=== PATIENT | female | born 1970 ===

== ENCOUNTER 2020-06-08 17:17 | Outpatient (CLI) | payer OTHER, SELFPAY | END 2020-06-08 17:18 | disposition home or self-care (01) | LOC: ANHCOVIDVC 17:17 | PROVIDERS: PCP Family Medicine | DX: Z23 Encounter for immunization (principal) | CPT/HCPCS: 0001A; 91300 ==

== ENCOUNTER 2020-06-29 17:22 | Outpatient (CLI) | payer OTHER, SELFPAY | END 2020-06-29 17:23 | disposition home or self-care (01) | LOC: ANHCOVIDVC 17:22 | PROVIDERS: PCP Family Medicine | DX: Z23 Encounter for immunization (principal) | CPT/HCPCS: 0002A; 91300 ==

== ENCOUNTER 2024-08-21 09:53 | Outpatient (CLI) | payer OTHER, SELFPAY ==
--- OUTSIDE RECORDS SUMMARY | 2024-08-21 10:06 | XMS_ITS | Encounter Summary ---
Author Organization [facility] Address [address] [place] [address] Care Team Providers Care Patents Examiner Name Role Phone Alexandra Mejia MD Primary Care Provider Aurora quinones Encounter Details Date Type Department Care Team (Latest Contact Info) Description 09/05/2008 Outpatient Historical [facility] Alexandra Gibbons MD NO ADDRESS ON FILE Abnormal Maternal Glucose Tolerance, Antepartum Social History Tobacco Use Types Packs/Day Years Used Date Smoking Tobacco: Former Cigarettes Q uit: 04/30/2008 Alcohol Use Standard Drinks/Week Comments No 0 (1 standard drink = 0.6 oz pur e alcohol) Comments Yes Sex and Gender Information Value Date Recorded Sex Assigned at Not on file Legal Sex Female 5:41 AM COIN DEALER Gender Identity Not on file Sexual Orientation Not on file documented as of this encounter Plan of Treatment Not on file documented as of this encounter Visit Diagnoses Diagnosis Abnormal maternal glucose tolerance, antepartum documented in this encounter Care Teams Patents Examiner Relationship Specialty Start Date End Date Alexandra Mejia MD PCP - General Obstetrics and Gynecology 07/04/17 documented as of this encounter
--- OUTSIDE RECORDS SUMMARY | 2024-08-21 10:06 | XMS_ITS | Encounter Summary ---
Author Organization [employer] Address [address] [place] [address] Care Team Providers Care Parts Runner Name Role Phone Alexandra Mejia MD Primary Care Provider Aurora quinones Encounter Details Date Type Department Care Team (Latest Contact Info) Description 05/07/2008 Outpatient Historical [facility], [address] Alexandra Mejia MD [address] [facility] [address] [address] Supervision of Other Normal Social History Tobacco Use Types Packs/Day Years Used Date Smoking Tobacco: Never Assessed Comments No Sex and Gender Information Value Date Recorded Sex Assigned at Not on file Legal Sex Female 5:41 AM SMALL ENGINE SPECIALIST Gender Identity Not on file Sexual Orientation Not on file documented as of this encounter Plan of Treatment Not on file documented as of this encounter Procedures Procedure Name Priority Date/Time Associated Diagnosis Comments TYPE AND SCREEN, Routine 05/07/2008 9:55 PM SMALL ENGINE SPECIALIST documented in this encounter Results * TYPE AND SCREEN, (05/07/2008 9:55 PM SMALL ENGINE SPECIALIST) HISTORY CHECK No Historical ABO/Rh [facility] ABO/RH TYPE B Negative [facility] ANTIBODY SCREEN Negative [facility] Blood specimen (specimen) 05/07/2008 9:55 PM SMALL ENGINE SPECIALIST us Alexandra Mejia MD BLOOD BANK ORDERABLES Edited INTERFACE SYSTEM Refer to clinic/hospital department [facility] CLIA# [id number] [address] [place] [address] documented in this encounter Visit Diagnoses Diagnosis Supervision of other normal documented in this encounter Care Teams Parts Runner Relationship Specialty Start Date End Date Alexandra Mejia MD PCP - General Obstetrics and Gynecology 07/04/17 documented as of this encounter
--- OUTSIDE RECORDS SUMMARY | 2024-08-21 10:06 | XMS_ITS | Clinical Summary ---
Author Organization [facility] Address [address] [facility] [place] [address] Phone Care Team Providers Care Gaming Dealer Name Role Phone Alexandra Mejia MD Primary Care Provider Unavaila ble Allergies No known active allergies Medications Levonorgestrel (MIRENA) 20 mcg/24 hr (5 years) IUDIndications: Encounter for IUD insertion by Intrauterine route. Active temazepam (RESTORIL) 15 mg capsule TK ONE C PO QHS 0 9 Active multivitamin with minerals (HAIR,SKIN AND NAILS ORAL) Take by mouth. Act deny Active Problems Problem Noted Date Diagnosed Date Tobacco use 02/16/2015 Presence of intrauterine contraceptive device (I UD) 01/21/2014 Overview (01/21/2014): Mirena Previous section 05/16/2008 Resolved Problems Problem Noted Date Diagnosed Date Resolved Date Presence of intrauterine con traceptive device (IUD) 09/01/2013 12/24/2013 Overview (09/01/2013): Mirena C section 12/11/2008 10/09/2011 Supervision of other normal 08/13/2008 10/09/2011 Encounters Date Type Department Care Team Description 08/19/2024 External Device Data [facility] ABSTRACTION Provider, Abstract 08/05/2024 External Device Data [facility] ABSTRACTION Provider, Abstract 06/18/2024 External Device Data [facility] ABSTRACTION Provider, Abstract 06/10/2024 External Device Data [facility] ABSTRACTION Provider, Abstract 06/10/2024 External Device Data [facility] ABSTRACTION Provider, Abstract 06/07/2024 External Device Data [facility] ABSTRACTION Provider, Abstract 06/06/2024 External Device Data [facility] ABSTRACTION Provider, Abstract 06/03/2024 External Device Data [facility] ABSTRACTION Provider, Abstract from Last 3 Months Immunizations Immunization Administration Dates Next Due INFLUENZA VACCINE QUADRIVALENT 6 MOS UP PF IM Rho (D) IMMUNE GLOBULIN 1,500 UNIT(300 MCG) INJE CTION 09/03/2008 Rhogam (Rhig) Human Full Dose IM 12/11/2008 Tdap Vaccine > 7 Yo IM VFC 12/13/2008 Family History Medical History Relation Name Comments No Known Problems Daughter No Known Problems Maternal Grandmother Hypertension Mother No Known Problems Other No Known Problems Sister Breast Cancer Neg Hx Cancer Neg Hx Ovarian Cancer Neg Hx Relation Name Status Comments Daughter Maternal Grandmother Mother Other Sister Social History Tobacco Use Types Packs/Day Years Used Date Smoking Tobacco: Every Day Cigarettes 0 Started: 04/30/2008; Last attempted to quit: 04/30/2008 Smokeless Tobacco: Never Alcohol Use Standard Drinks/Week Comments Yes 2 (1 standard drink = 0.6 oz pur e alcohol) occ weekends Comments No Sex and Gender Information Value Date Recorded Sex Assigned at Not on file Legal Sex Female 5:41 AM NUMERICAL CONTROL DRILL PRESS OPERATOR Gender Identity Not on file Sexual Orientation Not on file Occupation Industry Job Start Date Job End Date Not on file Not on file Not on file Not on file Last Filed Vital Signs Vital Sign Reading Time Taken Comments Blood Pressure 120/82 03/12/2019 11:01 AM NUMERICAL CONTROL DRILL PRESS OPERATOR Pulse 83 04/20/2009 4:20 PM NUMERICAL CONTROL DRILL PRESS OPERATOR Temperature - - Respiratory Rate - - Oxygen Saturation - - Inhaled Oxygen Concentration - - Weight 58.1 kg (128 lb) 03/12/2019 11:01 AM NUMERICAL CONTROL DRILL PRESS OPERATOR Height 170.2 cm (5' 7 ) 03/12/2019 11:01 AM NUMERICAL CONTROL DRILL PRESS OPERATOR Body Mass Index 20.05 03/12/2019 11:01 AM NUMERICAL CONTROL DRILL PRESS OPERATOR Plan of Treatment Health Maintenance Due Date Last Done Comments HEPATITIS B VACCINES (1 of 3 - 19+ 3-dose series) 1990 FIT-DNA Q 3 years 2016 FIT/FOBT Q 1 year 2016 Flex Sig/CT Colonography Q 5 years 2016 DTAP/TDAP/TD VACCINES (2 - T d or Tdap) 12/13/2018 12/13/2008 ZOSTER VACCINE (1 of 2) 2021 PAP SMEAR 09/04/2021 09/04/2018, 08/02, 08/24/2016, Additional history exists CERVICAL CANCER SCREENING 09/05/2023 HPV/Cotest (21-29) 09/05/2023 09/04/2018, 0 08/29/2017, 08/24/2016, Additional history exists HPV/Cotest (30-65) 09/05/2023 09/04/2018, 0 08/29/2017, 08/24/2016, Additional history exists INFLUENZA VACCINE (#1) 2023 02/13/2018 BREAST CANCER SCREENING 03/10/2025 03/10/20, 07/27/2022, 05/18/2021, Additional history exists COLORECTAL SCREENING 08/31/2032 08/31/2022 Colorectal Cancer Screening 08/31/2032 Procedures Procedure Name Priority Date/Time Associated Diagnosis Comments MAMMO 3D ERNIE SCREEN IMPL BILAT W OR WO CAD Routine 03/10/2024 11:43 AM NUMERICAL CONTROL DRILL PRESS OPERATOR Visit for screening mammogram CERV/VAG CYTO AGE BASED SCREEN PAP Routine 09/04/2018 4:03 PM CDT Well woman exam with routine gynecological exam Screening for malignant neoplasm of cervix Special screening examination for human papillomavirus (HPV) from Last 3 Months or Most Recently Relevant to Health Maintenance Results * MAMMO 3D ERNIE SCREEN IMPL BILAT W OR WO CAD (03/10/2024 11:43 AM NUMERICAL CONTROL DRILL PRESS OPERATOR) Anatomical Region Laterality Modality Breast Bilateral Mammography 03/10/2024 11:4 3 AM NUMERICAL CONTROL DRILL PRESS OPERATOR Impressions 03/10/2024 11:58 AM NUMERICAL CONTROL DRILL PRESS OPERATOR IMPRESSION: No mammographic evidence of malignancy. RECOMMENDATIONS: Routine screening mammogram in one year. DICTATION LOCATION: [facility] Narrative 03/10/2024 11:58 AM NUMERICAL CONTROL DRILL PRESS OPERATOR MAMMO 3D ERNIE SCREEN IMPL BILAT W OR WO CAD DATE: 03/10/2024 11:43 AM HISTORY: Routine screening TECHNIQUE: Full field digital craniocaudal and mediolateral oblique projections of both breasts were obtained. Computer aided diagnosis was performed. COMPARISON: Prior mammograms dating back to 07/09/2017 BREAST COMPOSITION: There are scattered areas of fibroglandular density. FINDINGS: No suspicious mass, suspicious microcalcifications, or architectural distortion in either breast is identified. Since the prior study, there has been no significant interval change. The computer aided diagnosis detects no significant abnormality. OVERALL FINAL ASSESSMENT: BI-RADS CATEGORY 1 : Negative Procedure Note Lesly Cam MD - 03/10/2024 MAMMO 3D ERNIE SCREEN IMPL BILAT W OR WO CAD DATE: 03/10/2024 11:43 AM HISTORY: Routine screening TECHNIQUE: Full field digital craniocaudal and mediolateral oblique projections of both breasts were obtained. Computer aided diagnosis was performed. COMPARISON: Prior mammograms dating back to 07/09/2017 BREAST COMPOSITION: There are scattered areas of fibroglandular density. FINDINGS: No suspicious mass, suspicious microcalcifications, or architectural distortion in either breast is identified. Since the prior study, there has been no significant interval change. The computer aided diagnosis detects no significant abnormality. OVERALL FINAL ASSESSMENT: BI-RADS CATEGORY 1 : Negative IMPRESSION: No mammographic evidence of malignancy. RECOMMENDATIONS: Routine screening mammogram in one year. DICTATION LOCATION: [facility] us Chidi De Souza MD MAMMO ORDERABLES Final Result * CERV/VAG CYTO AGE BASED SCREEN PAP (09/04/2018 4:03 PM CDT) COMMENT (PAP): SEE COMMENT 9 3:52 PM CDT [facility] Comment: This order for age-based cervical cancer and STI screening follows ACOG guidelines(PB 168, 140, LFD083). See individual assays for performing site location. CLINICAL INFORMATION Intrauterine contraceptive device HEALTHY 09/09/2018 3:52 PM CDT [facility] LAST MENSTRUAL PERIOD INFORMATION NOT PROVIDED 09/09/2018 3:52 PM CDT [facility] PREV PAP: [id number] NIL/NEG HPV HX 09/09/2018 3:52 PM CDT [facility] PREV BX: INFORMATION NOT PROVIDED 09/09/2018 3:52 PM CDT [facility] SOURCE Endocervix 09/09/2018 3:52 PM CDT [facility] ADEQUACY: SEE COMMENT 09/09/2018 3:52 PM CDT [facility] Comment: Satisfactory for evaluation. Endocervical/transformation zone component present. PAP INTERP Negative for intraepithelial lesion or malignancy. 09/09/2018 3:52 PM CDT [facility] COMMENT This Pap test has been evaluated with computer assisted technology. 09/09/2018 3:52 PM CDT [facility] DAUB COLOR MIXER: SEE COMMENT 2018 3:52 PM CDT [facility] Comment: MDG, CT(ASCP) CT screening location: [place] [address] [address] [place] [place] [id number] EXPLANATORY NOTE SEE COMMENT 019 3:52 PM CDT [facility] Comment: EXPLANATORY NOTE: The Pap is a screening test for cervical cancer. It is not a diagnostic test and is subject to false negative and false positive results. It is most reliable when a satisfactory sample, regularly obtained, is submitted with relevant clinical findings and history, and when the Pap result is evaluated along with historic and current clinical information. HPV E6/E7 Not Detected Not Detected 09/09/2018 3:52 PM CDT [facility] Comment: This test was performed using the APTIMA HPV Assay ([employer] This assay detects E6/E7 viral messenger RNA (mRNA) from 14 high-risk HPV types (16,18,31,33,35,39,45,51,52,56,58,59,66,68). The analytical performance characteristics of this assay have been determined by [employer]. The modifications have not been cleared or approved by the FDA. This assay has been validated pursuant to the CLIA regulations and is used for clinical purposes. Genital SWAB OF ENDOCERVIX / Unknown Collection / Unknown 09/04/2018 4:03 PM CDT 09/05/2018 12:07 PM CDT Narrative [facility] - 09/09/2018 3:52 PM CDT Performing Organization Information: Site ID: [id number] [facility] Address: [address] [address] Director: Shakeel Whitman D.O., MPH Site ID: [id number] [facility]: [facility] Address: [address] [address] [address] Director: Dorys Shankar Alexandra Mejia MD PATHOLOGY/CYTOLOGY ORDERABLES F inal Result [facility] [phone] from Last 3 Months or Most Recently Relevant to Health Maintenance Insurance RX [employer] Commercial RX [employer] RX Member Subscriber Plan / Payer (Ef fective for All Dates) Name:Peyton Hartmann Relation to Subscriber:Self Name:Peyton Hartmann Payer ID:Not on file Group ID:[id number] Type:RX Commercial Address: [address] [facility] [address] Advance Directives For more information, please contact: [phone] * Full Code (Latest Code Status on File) Date Activated Date Inactivated Comments 12/10/2008 6:48 PM 12/14/2008 9:02 PM * Full Code Date Activated Date Inactivated Comments 12/10/2008 3:05 PM 12/10/2008 6:48 PM Care Teams Gaming Dealer Relationship Specialty Start Date End Date Alexandra Mejia MD PCP - General Obstetrics and Gynecology 07/04/17
--- OUTSIDE RECORDS SUMMARY | 2024-08-21 10:06 | XMS_ITS | Encounter Summary ---
Author Organization [employer] [facility] Address [address] [place] [address] Care Team Providers Care Long Term Acute Care Registered Nurse Name Role Phone Alexandra Mejia MD Primary Care Provider Aurora quinones Encounter Details Date Type Department Care Team (Late st Contact Info) Description 09/08/2008 Outpatient Historical [facility] Alexandra Madsen MD NO ADDRESS ON FILE [address] Holzem, Craig S, MD [address] [place] [phone] Abn Glucose in Preg-Unsp; Abnormal Maternal Glucose Tolerance, Antepartum Social History Tobacco Use Types Packs/Day Years Used Date Smoking Tobacco: Former Cigarettes Q uit: 04/30/2008 Alcohol Use Standard Drinks/Week Comments No 0 (1 standard drink = 0.6 oz pur e alcohol) Comments Yes Sex and Gender Information Value Date Recorded Sex Assigned at Not on file Legal Sex Female 5:41 AM BIOCHEMIST Gender Identity Not on file Sexual Orientation Not on file documented as of this encounter Plan of Treatment Not on file documented as of this encounter Visit Diagnoses Diagnosis Abnormal maternal glucose tolerance, complicating , childbirth, or the puerperium, unspecified as to episode of care Abnormal maternal glucose tolerance, antepartum documented in this encounter Care Teams Long Term Acute Care Registered Nurse Relationship Specialty Start Date End Date Alexandra Mejia MD PCP - General Obstetrics and Gynecology 07/04/17 documented as of this encounter
--- OUTSIDE RECORDS SUMMARY | 2024-08-21 10:06 | XMS_ITS | Encounter Summary ---
Author Organization [employer] Address [address] [place] [address] Care Team Providers Care Ceramics Teacher Name Role Phone Alexandra Mejia MD Primary Care Provider Aurora quinones Encounter Details Date Type Department Care Team (Latest Contact Info) Description 11/19/2008 Outpatient Historical [facility], MAIN , Wendy Chapman MD [address] [place] [address] Supervision of Other Normal Social History Tobacco Use Types Packs/Day Years Used Date Smoking Tobacco: Former Cigarettes Q uit: 04/30/2008 Alcohol Use Standard Drinks/Week Comments No 0 (1 standard drink = 0.6 oz pur e alcohol) Comments Yes Sex and Gender Information Value Date Recorded Sex Assigned at Not on file Legal Sex Female 5:41 AM ELECTRIC SCREW DRIVER OPERATOR Gender Identity Not on file Sexual Orientation Not on file documented as of this encounter Plan of Treatment Not on file documented as of this encounter Visit Diagnoses Diagnosis Supervision of other normal documented in this encounter Care Teams Ceramics Teacher Relationship Specialty Start Date End Date Alexandra Mejia MD PCP - General Obstetrics and Gynecology 07/04/17 documented as of this encounter
--- OUTSIDE RECORDS SUMMARY | 2024-08-21 10:06 | XMS_ITS | Encounter Summary ---
Author Organization [employer] [facility] Address [address] [place] [address] Care Team Providers Care Insight Leader Name Role Phone Alexandra Mejia MD Primary Care Provider Aurora quinones Encounter Details Date Type Department Care Team (Latest Contact Info) Description 06/11/2008 Outpatient Historical [facility] Alexandra Mejia MD [address] [facility] [address] [address] Supervision of Other Normal ; Elderly Multigravida with Antepartum Condition or Complication Social History Tobacco Use Types Packs/Day Years Used Date Smoking Tobacco: Former Cigarettes Q uit: 04/30/2008 Alcohol Use Standard Drinks/Week Comments No 0 (1 standard drink = 0.6 oz pur e alcohol) Comments Yes Sex and Gender Information Value Date Recorded Sex Assigned at Not on file Legal Sex Female 5:41 AM DIRECTOR OF CAREER RESOURCES Gender Identity Not on file Sexual Orientation Not on file documented as of this encounter Plan of Treatment Not on file documented as of this encounter Procedures Procedure Name Priority Date/Time Associated Diagnosis Comments US OB LTD 1 OR MORE FETUSES Timed Study 06/11/2008 2:34 PM CDT documented in this encounter Results * US OB LTD 1 OR MORE FETUSES (06/11/2008 2:34 PM CDT) Anatomical Region Laterality Modality Pelvis Other Narrative 06/11/2008 2:34 PM CDT FINAL - Order Information Only Procedure Note Luis Jorge RN - 04/20/2015 FINAL - Order Information Only us Alexandra Mejia MD ORDERABLES Final Result documented in this encounter Visit Diagnoses Diagnosis Supervision of other normal Elderly multigravida with antepartum condition or complication documented in this encounter Care Teams Insight Leader Relationship Specialty Start Date End Date Alexandra Mejia MD PCP - General Obstetrics and Gynecology 07/04/17 documented as of this encounter
--- OUTSIDE RECORDS SUMMARY | 2024-08-21 10:06 | XMS_ITS | Encounter Summary ---
Author Organization [employer] Address [address] [place] [address] Care Team Providers Care Parasitology Teacher Name Role Phone Alexandra Mejia MD Primary Care Provider Aurora quinones Encounter Details Date Type Department Care Team (Latest Contact Info) Description 09/03/2008 Outpatient Historical [facility] Alexandra Mejia MD NO ADDRESS ON FILE Supervision of Other Normal Social History Tobacco Use Types Packs/Day Years Used Date Smoking Tobacco: Former Cigarettes Q uit: 04/30/2008 Alcohol Use Standard Drinks/Week Comments No 0 (1 standard drink = 0.6 oz pur e alcohol) Comments Yes Sex and Gender Information Value Date Recorded Sex Assigned at Not on file Legal Sex Female 5:41 AM APPAREL SALES LEADER Gender Identity Not on file Sexual Orientation Not on file documented as of this encounter Plan of Treatment Not on file documented as of this encounter Procedures Procedure Name Priority Date/Time Associated Diagnosis Comments BLOOD BANK ANTIBODY SCREEN Routine 09/03/2008 8:24 PM CDT documented in this encounter Results * ANTIBODY SCREEN (09/03/2008 8:24 PM CDT) HISTORY CHECK History Checked [facility] SPECIMEN LIFE 3 days from drawdate [facility] ANTIBODY SCREEN Negative [facility] Blood specimen (specimen) 09/03/2008 8:24 PM CDT us Alexandra Mejia MD BLOOD BANK ORDERABLES Edited INTERFACE SYSTEM Refer to clinic/hospital department [facility] CLIA# [id number] [address] [place], [place] [address] documented in this encounter Visit Diagnoses Diagnosis Supervision of other normal documented in this encounter Care Teams Parasitology Teacher Relationship Specialty Start Date End Date Alexandra Mejia MD PCP - General Obstetrics and Gynecology 07/04/17 documented as of this encounter
--- OUTSIDE RECORDS SUMMARY | 2024-08-21 10:06 | XMS_ITS | Encounter Summary ---
Author Organization [facility] Address [address] [place] [address] Care Team Providers Care Long Goods Drier Name Role Phone Alexandra Mejia MD Primary Care Provider Aurora quinones Encounter Details Date Type Department Care Team (Latest Contact Info) Description 08/25/2008 Outpatient Historical [facility] Alexandra Mejia MD NO ADDRESS ON FILE Elderly Multigravida with Antepartum Condition or Complication Social History Tobacco Use Types Packs/Day Years Used Date Smoking Tobacco: Former Cigarettes Q uit: 04/30/2008 Alcohol Use Standard Drinks/Week Comments No 0 (1 standard drink = 0.6 oz pur e alcohol) Comments Yes Sex and Gender Information Value Date Recorded Sex Assigned at Not on file Legal Sex Female 5:41 AM COMPLEX MANAGER Gender Identity Not on file Sexual Orientation Not on file documented as of this encounter Plan of Treatment Not on file documented as of this encounter Visit Diagnoses Diagnosis Elderly multigravida with antepartum condition or complication documented in this encounter Care Teams Long Goods Drier Relationship Specialty Start Date End Date Alexandra Mejia MD PCP - General Obstetrics and Gynecology 07/04/17 documented as of this encounter
--- OUTSIDE RECORDS SUMMARY | 2024-08-21 10:06 | XMS_ITS | Encounter Summary ---
Author Organization [facility] Address [address] [place] [address] Care Team Providers Care Data Migration Consultant Name Role Phone Alexandra Mejia MD Primary Care Provider Aurora quinones Encounter Details Date Type Department Care Team (Latest Contact Info) Description 11/23/2008 [facility] Alexandra Mejia MD [...] on file Legal Sex Female 5:41 AM UPHOLSTERY CUTTER Gender Identity Not on file Sexual Orientation Not on file documented as of this encounter Plan of Treatment Not on file documented as of this encounter Procedures Procedure Name Priority Date/Time Associated Diagnosis Comments US BIOPHYSICAL PROF W NST Routine 11/26/2008 1:51 PM CDT US OB LTD 1 OR MORE FETUSES Timed Study 11/26/2008 1:51 PM CDT US BIOPHYSICAL PROF W NST Routine 11/24/2008 4:23 PM CDT US OB LTD 1 OR MORE FETUSES Timed Study 11/23/2008 11:21 AM CDT documented in this encounter Results * US BIOPHYSICAL PROFILE (11/26/2008 1:51 PM CDT) Anatomical Region Laterality Modality Pelvis Other Narrative 11/26/2008 1:51 PM CDT FINAL - Order Information Only Procedure Note Luis Jorge, RN - 04/20/2015 FINAL - Order Information Only Alexandra Mejia MD US ORDERABLES Final Result * US OB LTD 1 OR MORE FETUSES (11/26/2008 1:51 PM CDT) Anatomical Region Laterality Modality Pelvis Other Narrative 11/26/2008 1:51 PM CDT FINAL - Order Information Only Procedure Note Luis Jorge, RN - 04/20/2015 FINAL - Order Information Only Alexandra Mejia MD US ORDERABLES Final Result * US BIOPHYSICAL PROFILE (11/24/2008 4:23 PM CDT) Anatomical Region Laterality Modality Pelvis Other Narrative 11/24/2008 4:23 PM CDT FINAL - Order Information Only Procedure Note Luis Jorge, RN - 04/20/2015 FINAL - Order Information Only Shakeel Sena MD US ORDERABLES Final Result * US OB LTD 1 OR MORE FETUSES (11/23/2008 11:21 AM CDT) Anatomical Region Laterality Modality Pelvis Other Narrative 11/23/2008 11:21 AM CDT FINAL - Order Information Only Procedure Note Luis Jorge, RN - 04/20/2015 FINAL - Order Information Only us Alexandra Mejia MD US ORDERABLES Final Result documented in this encounter Visit Diagnoses Diagnosis Elderly multigravida with antepartum condition or complication documented in this encounter Care Teams Data Migration Consultant Relationship Specialty Start Date End Date Alexandra Mejia MD PCP - General Obstetrics and Gynecology 07/04/17 documented as of this encounter
--- OUTSIDE RECORDS SUMMARY | 2024-08-21 10:06 | XMS_ITS | Encounter Summary ---
Author Organization [facility] Address [address] 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 Gender Identity Not on file Sexual Orientation Not on file documented as of this encounter Plan of Treatment Not on file documented as of this encounter Procedures Procedure Name Priority Date/Time Associated Diagnosis Comments SARS-COV-2 (COVID-19) IN HOUSE Routine 10/10/2019 2:45 PM CDT documented in this encounter Results * SARS-COV-2 (COVID-19) IN HOUSE (10/10/2019 2:45 PM CDT) COVID-19 PCR Not detected Not detected, Invalid 10/11/2019 3:38 PM CDT [facility] Microbiology SPECIMEN FROM NASOPHARYNGEAL STRUCTURE / Unknown Collection / Unknown 10/10/2019 2:45 PM CDT 10/10/2019 8:19 PM CDT Narrative [facility] - 10/11/2019 3:38 PM CDT This Real Time RT-PCR assay was developed and its performance characteristics determined by [facility]. This test has been authorized by the Food and Drug administration (FDA)under an Emergency Use Authorization (EUA). This test has been validated in accordance with the FDA's guidance document Policy for Diagnostic Testing in Laboratories Certified to perform High Complexity Testing under CLIA prior to Emergency Use Authorization for Coronavirus Disease-2019 during the Public Health Emergency issued on May 31, 2019. FDA independent review of this validation is pending. This test is only authorized for the duration of time the declaration that circumstances exist justifying the authorization of emergency use of in vitro diagnostic tests for detection of SARS-CoV-2 virus and/or diagnosis of COVID-19 infection under section 564(b)(1) of the Act, 21 U.S.C 360bbb-3 (b)(1), unless the authorization is terminated or revoked sooner. Behzad Garza MD LAB - MICROBIOLOGY ORDERABLES Fi nal Result [facility] [address] [place] [address], [facility] [phone] documented in this encounter Visit Diagnoses Not on filedocumented in this encounter Additional Health Concerns Infection Onset Date Last Indicated Resolved Time COVID-19 Under Investigation 10/10/2019 10/10/2019 10/11/2019 3:38 PM CDT documented as of this encounter
--- OUTSIDE RECORDS SUMMARY | 2024-08-21 10:06 | XMS_ITS | Encounter Summary ---
Author Organization [facility] Address 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 Gender Identity Not on file Sexual Orientation Not on file documented as of this encounter Plan of Treatment Not on file documented as of this encounter Procedures Procedure Name Priority Date/Time Associated Diagnosis Comments US OB LTD 1 OR MORE FETUSES Timed Study 07/27/2008 12:35 PM CDT documented in this encounter Results * US OB LTD 1 OR MORE FETUSES (07/27/2008 12:35 PM CDT) Anatomical Region Laterality Modality Pelvis Other Narrative 07/27/2008 12:35 PM CDT FINAL - Order Information Only Procedure Note Luis Jorge RN - 04/20/2015 FINAL - Order Information Only us Alexandra Mejia MD ORDERABLES Final Result documented in this encounter Visit Diagnoses Diagnosis Elderly multigravida with antepartum condition or complication documented in this encounter Care Teams Commercial Roofer Relationship Specialty Start Date End Date Alexandra Mejia MD PCP - General Obstetrics and Gynecology 07/04/17 documented as of this encounter
--- OUTSIDE RECORDS SUMMARY | 2024-08-21 10:06 | XMS_ITS | Encounter Summary ---
Author Organization [facility] Address [address] [place] [address] Care Team Providers Care Channel Turner Name Role Phone Alexandra Mejia MD Primary Care Provider Aurora quinones Encounter Details Date Type Department Care Team (Late st Contact Info) Description 08/19/2024 External Device Data [facility] ABSTRACTION Provider, Abstract NO ADDRESS ON FILE Social History Tobacco Use Types Packs/Day Years Used Date Smoking Tobacco: Every Day Cigarettes 0 Started: 04/30/2008; Last attempted to quit: 04/30/2008 Smokeless Tobacco: Never Alcohol Use Standard Drinks/Week Comments Yes 2 (1 standard drink = 0.6 oz pur e alcohol) occ weekends Comments No Sex and Gender Information Value Date Recorded Sex Assigned at Not on file 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
--- OUTSIDE RECORDS SUMMARY | 2024-08-21 10:06 | XMS_ITS | Clinical Summary ---
Author Organization [facility] Address [address] [place] [address] Care Team Providers Care Oil Mixer Name Role Phone Unavailable Primary Care Provider Unavailabl e Source Comments [facility],non-owned Affiliates and Associated Physician Practices is amultiple site organization consisting of ambulatory clinics and hospital sitesin [place], [place], [place] and [place]. This disclosure is being madepursuant to the Care Everywhere program and may not contain all information available regarding this patient. Last updated 17.[facility] Allergies No known active allergies Immunizations Immunization Administration Dates Next Due INFLUENZA VACCINE, QUADR. 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 Gender Identity Not on file Sexual Orientation Not on file Plan of Treatment Health Maintenance Due Date Last Done Comments COLOGUARD (AGES 45-75) - COL ON CA SCREENING 1971 CT COLONOGRAPHY - COLON CA SCREENING 1971 FIT - COLON CA SCREENING 1971 FLEX SIG - COLON CA SCREENING 1971 LIPID TESTING 1971 PAP SMEAR 1971 HIV SCREENING 1986 HEPATITIS C SCREENING 04/11/1989 DTAP/TDAP/TD VACCINES (1 - Tdap) 1990 HEPATITIS B VACCINE (1 of 3 - 19+ 3-dose series) 1990 PNEUMOCOCCAL VACCINE 50+ (1 of 1 - PCV) 2021 ZOSTER VACCINE (1 of 2) 2021 COVID-19 VACCINE (1 - 2023-2 5 season) 2023 DEPRESSION SCREENING 04/02/2024 MAMMOGRAM 07/27/2024 07/27/2022 INFLUENZA VACCINE (Season Ended) 2024 01/19/2019, 02/13/2018, 12/31/2017 COLONOSCOPY - COLON CA SCREENING 09/08/2027 09/07/2022, 09/07/2022, 08/31/2022 Colorectal Cancer Screening 09/08/2027 COLON MONITORING 09/07/2032 09/07/2022, 09/07/2022, 08/31/2022 HIB VACCINE Aged Out No longer eligi ble based on patient's age to complete this topic HPV VACCINE Aged Out No longer eligi ble based on patient's age to complete this topic MENINGOCOCCAL (Group B) VACCINE SHARED DECISION-MAKING Aged Out No longer eligible based on patient's age to complete this topic MENINGOCOCCAL GROUPS A/C/Y/W VACCINE Aged Out No longer eligible b ased on patient's age to complete this topic Procedures Procedure Name Priority Date/Time Associated Diagnosis Comments ENDOSCOPY, COLON, SCREENING Routine 08/31/2022 Special screening for malignant neoplasms, colon from Last 3 Months or Most Recently Relevant to Health Maintenance Results * ENDOSCOPY, COLON, SCREENING (08/31/2022) Edi Carlos MD GI PROCEDURE ORDERABLES Final Re sult [facility] RESULT SCAN from Last 3 Months or Most Recently Relevant to Health Maintenance Insurance CARE
[2024-08-21 10:23] LABS: Hematocrit 43.2 % (37.0-47.0); Hemoglobin 14.2 g/dL (12.0-15.0); Mean Corpuscular HGB Conc 32.9 g/dl (32-36); Mean Corpuscular Hemoglobin 30.2 pg (26-34); Mean Corpuscular Volume 91.9 fl (80-100); Mean Platelet Volume 10.2 fl (7.4-10.4); Platelet Count Result 202 k/mm3 (150-375); Red Cell Distribution Width 12.9 % (11.5-14.5); White Blood Count 6.6 K/mm3 (4.5-10.0)
--- NOTE | 2024-08-21 10:30 | ECG_ITS ---
Test Date: 2024-08-21 10:56:46 Measurements Intervals [place] Rate: 54 P: 38 DE: 174 QRS: -18 QRSD: 86 T: 7 QT: 416 QTc: 394 Interpretive Statements SINUS BRADYCARDIA WITH SINUS ARRHYTHMIA POSSIBLE RIGHT VENTRICULAR CONDUCTION DELAY [RSR (QR) IN V1/V2] LEFT ANTERIOR FASCICULAR BLOCK No previous ECG available for comparison Electronically Signed On 08-21-2024 14:11:40 CDT by Abran Nichols M.D.
[2024-08-21 10:33] LABS: Anion Gap 12 mmol/L (4-12); Blood Urea Nitrogen 15 mg/dL (7-17); Calcium 9.9 mg/dL (8.4-10.2); Carbon Dioxide 24 mmol/L (22-30); Chloride 107 mmol/L (98-107); Estimated Glomerular Filt Rate > 60; Glucose 100 mg/dL (65-110); Potassium 3.9 mmol/L (3.4-5.0); Sodium 143 mmol/L (137-145)
[2024-08-21 10:46] LABS: Partial Thromboplastin Time 26.1 Seconds (22.3-36.8); Prothrombin Time 13.9 Seconds (11.1-14.7)
== END 2024-08-21 09:54 | disposition home or self-care (01) ==
PROVIDERS: PCP Family Medicine; Visit Provider Orthopaedic Surgery
DX: I49.8 Other specified cardiac arrhythmias (principal); I44.4 Left anterior fascicular block; R00.1 Bradycardia, unspecified; I10 Essential (primary) hypertension
CPT/HCPCS: 36415; 80048; 85027; 85610; 85730; 93005